=== PATIENT | male | born 1995 | race Caucasian/White ===

== ENCOUNTER 2019-07-27 13:58 | Emergency (ER) | payer OTHER ==
[~2019-07-27] VITALS: Ht 170.2 cm; Wt 74.8 kg
== END 2019-07-27 14:55 | disposition home or self-care (01) ==
LOC: ER 13:58
DX: S83.8X2A Sprain of other specified parts of left knee, initial encounter (principal); X50.9XXA Other and unspecified overexertion or strenuous movements or postures, initial encounter; Y93.75 Activity, martial arts; Y92.39 Other specified sports and athletic area as the place of occurrence of the external cause; Y99.8 Other external cause status

== ENCOUNTER 2020-03-16 22:56 | Emergency (ER) | payer OTHER ==
[~2020-03-16] VITALS: Ht 170.2 cm; Wt 73.9 kg
== END 2020-03-16 23:57 | disposition home or self-care (01) ==
LOC: ER 22:56
DX: S63.592A Other specified sprain of left wrist, initial encounter (principal); W50.0XXA Accidental hit or strike by another person, initial encounter; Y93.89 Activity, other specified; Y92.89 Other specified places as the place of occurrence of the external cause; Y99.8 Other external cause status

== ENCOUNTER 2020-06-05 02:08 | Emergency (ER) | payer OTHER ==
[~2020-06-05] VITALS: Ht 170.2 cm; Wt 77.1 kg
== END 2020-06-05 05:25 | disposition home or self-care (01) ==
LOC: ER 02:08
DX: N50.3 Cyst of epididymis (principal)

== ENCOUNTER 2020-06-30 21:09 | Emergency (ER) | payer OTHER ==
[~2020-06-30] VITALS: Ht 170.2 cm; Wt 73.5 kg
== END 2020-07-01 03:27 | disposition home or self-care (01) ==
LOC: ER 21:09
DX: U07.1 COVID-19 (principal)